=== PATIENT | male | born 1950 | race African-American/Black ===

== ENCOUNTER 2021-02-24 15:56 | Inpatient (IN) | payer BC, MEDICAID ==
[~2021-02-24] VITALS: Ht 180.3 cm; Wt 79.4 kg
[2021-02-24] MEDS ORDERED: FUROSEMIDE 40MG/4ML VIAL IVP ONE (17:00)
[2021-02-24] MEDS ORDERED: PIPERACILLIN/TAZ 3.375G PREMIX 50 ML IV ONE (17:00)
[2021-02-24] MEDS ORDERED: VANCOMYCIN 1 G PREMIX 200 ML IV ONE (17:00)
[2021-02-24 18:25] LABS: BASOPHILS % 1.1 % (0.0-2.0); EOSINOPHILS % 5.2 % (0.0-5.0); HEMOGLOBIN. 9.2 g/dL (14.0-18.0); LYMPHOCYTES % 9.4 % (20.0-50.0); MEAN CORPUSCULAR HEMOGLOBIN 27.9 pg (28.0-32.0); MEAN CORPUSCULAR VOLUME 79.1 fL (80.0-94.0); MEAN PLATELET VOLUME 7.8 fl (7.4-10.4); MONOCYTES % 10.1 % (2.0-8.0); NEUTROPHILS % 74.2 % (40.0-76.0); PLATELET 373 x1000/uL (130-400); RED BLOOD CELL COUNT 3.29 mill/uL (4.7-6.1); RED CELL DISTRIBUTION WIDTH 17.4 % (11.6-14.6)
[2021-02-24 18:30] LABS: CHLORIDE 109 mEq/L (98-107)
[2021-02-24 18:31] LABS: INR 1.1; PROTHROMBIN TIME 11.4 sec (9.6-11.0)
[2021-02-24 19:23] LABS: CLARITY URINE CLEAR (CLEAR); COLOR URINE YELLOW (YELLOW); KETONES URINE NEGATIVE (NEGATIVE); LEUKOCYTE ESTERASE URINE NEGATIVE (NEGATIVE); NITRITE URINE NEGATIVE (NEGATIVE); OCCULT BLOOD URINE NEGATIVE (NEGATIVE); PH URINE 5.5 (4.5-8.0); PROTEIN URINE 3+ (NEGATIVE); SPECIFIC GRAVITY URINE 1.018 (1.005-1.030)
[2021-02-24] MEDS ORDERED: DEXAMETHASONE 10 MG/ML VIAL IV NR (19:45)
[2021-02-24] MEDS ORDERED: DIPH50CA38 PO (23:59)
[2021-02-24] MEDS ORDERED: FLUO10CA28 PO (23:59)
[2021-02-24] MEDS ORDERED: ATOR-2 PO (23:59)
[2021-02-24] MEDS ORDERED: FAMO20TA8 PO (23:59)
[2021-02-24] MEDS ORDERED: SPIR25TA6 PO (23:59)
[2021-02-24] MEDS ORDERED: LEVE500T19 PO (23:59)
[2021-02-24] MEDS ORDERED: ASPI-1497 PO (23:59)
[2021-02-25] VITALS (8 sets, daily range): BP systolic 110–172; BP diastolic 60–100
[2021-02-25] MEDS ORDERED: ACETAMINOPHEN 325MG TABLET PO PRN (02:15)
[2021-02-25] MEDS ORDERED: CLONIDINE 0.1MG TABLET PO PRN (02:15)
[2021-02-25] MEDS: PANTOPRAZOLE 40MG DR TABLET PO SCH (05:21)
[2021-02-25 07:17] LABS: HEMATOCRIT. 30.3 % (42.0-52.0); MEAN CORPUSCULAR HEMOGLOBIN 26.1 pg (28.0-32.0); MEAN CORPUSCULAR VOLUME 78.9 fL (80.0-94.0); MEAN PLATELET VOLUME 7.8 fl (7.4-10.4); PLATELET 395 x1000/uL (130-400); RED BLOOD CELL COUNT 3.83 mill/uL (4.7-6.1); RED CELL DISTRIBUTION WIDTH 17.9 % (11.6-14.6)
[2021-02-25 07:19] LABS: CHLORIDE 104 mEq/L (98-107)
[2021-02-25 07:26] LABS: LDL CHOLESTEROL 105 mg/dL (5-100)
[2021-02-25 07:27] LABS: HDL CHOLESTEROL 37 mg/dL (40-59)
[2021-02-25 07:31] LABS: CREATINE KINASE 101 IU/L (39-308)
[2021-02-25 07:33] LABS: CREATINE KINASE MB FRACTION 1.5 ng/mL (0.5-3.6)
[2021-02-25] MEDS: FLUOXETINE HCL 10 MG CAPSULE PO SCH (09:05)
[2021-02-25] MEDS: LOSARTAN POTASSIUM 50 MG TABLET PO SCH (09:05)
[2021-02-25] MEDS: LEVETIRACETAM 500MG TABLET PO SCH ×2 (09:06→21:05)
[2021-02-25] MEDS: ASPIRIN 81MG TABLET PO SCH (09:06)
[2021-02-25] MEDS: CARVEDILOL 6.25 MG TABLET PO SCH ×2 (09:06→21:05)
[2021-02-25] MEDS: FAMOTIDINE 20MG TABLET PO SCH (09:06)
[2021-02-25] MEDS: FUROSEMIDE 40MG/4ML VIAL IVP SCH (09:07)
[2021-02-25] MEDS: SPIRONOLACTONE 25MG TABLET PO SCH (09:07)
[2021-02-25] MEDS: ENOXAPARIN 40MG/0.4ML SYR SUBCUT SCH (09:08)
[2021-02-25 13:01] LABS: BG BASE EXCESS 1.8 mmol/L (-2.0-2.0); BG CARBOXYHEMOGLOBIN 0.2 % (0.5-1.5); BG DEOXYHEMOGLOBIN 2.2 % (0.0-5.0); BG FRACTION INSPIRED OXYGEN 28; BG HCO3 ACT 25.9 mmol/L (22.0-26.0); BG METHEMOGLOBIN 0.4 % (0.0-1.5); BG OXYGEN SATURATION 97.8 % (92.0-98.5); BG OXYHEMOGLOBIN 97.2 % (94.0-97.0); BG PCO2 38.7 mmHg (35.0-45.0); BG PH 7.444 (7.350-7.450); BG PO2 122.2 mmHg (75.0-100.0); BG SAMPLE SITE RIGHT RADIAL; BG TOTAL HEMOGLOBIN 10.8 g/dL (12.0-18.0); BG VENT MODE NASAL CANNULA
[2021-02-25] MEDS ORDERED: DIPHENHYDRAMINE 50MG/ML VIAL IV PRN (14:00)
[2021-02-25] MEDS ORDERED: LACTULOSE 20G/30ML UDC PO PRN (14:00)
[2021-02-25] MEDS ORDERED: LORAZEPAM 2MG/ML CPJ IV PRN (14:00)
[2021-02-25] MEDS: PIPERACILLIN/TAZOBACTAM 3.375 G in DEXTROSE 5% WATER 50 ML IV SCH ×2 (15:22→21:05)
[2021-02-25 16:44] LABS: CREATINE KINASE MB FRACTION 1.6 ng/mL (0.5-3.6)
[2021-02-25 16:45] LABS: CREATINE KINASE 189 IU/L (39-308)
[2021-02-25] MEDS: ALBUTEROL 6.7GM HFA INHALER ORI SCH (20:00)
[2021-02-25] MEDS: ATORVASTATIN CALCIUM 40MG TABLET PO SCH (21:05)
[2021-02-25 23:02] LABS: PLATELET ESTIMATE NORMAL
[2021-02-26] MEDS: ALBUTEROL 6.7GM HFA INHALER ORI SCH ×4 (01:01→22:13)
[2021-02-26 04:00] VITALS: BP 139/66
[2021-02-26] MEDS: HYDROCODONE/ACETAMINOPHEN 5/325MG TABLET PO PRN ×2 (05:28→09:55)
[2021-02-26] MEDS: PIPERACILLIN/TAZOBACTAM 3.375 G in DEXTROSE 5% WATER 50 ML IV SCH ×3 (05:28→22:00)
[2021-02-26 06:09] LABS: CHLORIDE 107 mEq/L (98-107)
[2021-02-26 06:09] LABS: BASOPHILS % 0.6 % (0.0-2.0); EOSINOPHILS % 3.9 % (0.0-5.0); HEMATOCRIT. 30.4 % (42.0-52.0); HEMOGLOBIN. 10.1 g/dL (14.0-18.0); LYMPHOCYTES % 9.8 % (20.0-50.0); MEAN CORPUSCULAR HEMOGLOBIN 26.8 pg (28.0-32.0); MEAN CORPUSCULAR VOLUME 80.7 fL (80.0-94.0); MEAN PLATELET VOLUME 7.8 fl (7.4-10.4); MONOCYTES % 8.8 % (2.0-8.0); NEUTROPHILS % 76.9 % (40.0-76.0); PLATELET 366 x1000/uL (130-400); RED BLOOD CELL COUNT 3.77 mill/uL (4.7-6.1); RED CELL DISTRIBUTION WIDTH 17.9 % (11.6-14.6)
[2021-02-26 06:25] VITALS: BP 143/83
[2021-02-26] MEDS: PANTOPRAZOLE 40MG DR TABLET PO SCH (06:44)
[2021-02-26] MEDS: FUROSEMIDE 40MG/4ML VIAL IVP SCH (09:40)
[2021-02-26] MEDS: DEXAMETHASONE 10 MG/ML VIAL IV SCH (09:40)
[2021-02-26] MEDS: SPIRONOLACTONE 25MG TABLET PO SCH (09:50)
[2021-02-26] MEDS: ASPIRIN 81MG TABLET PO SCH (09:50)
[2021-02-26] MEDS: LOSARTAN POTASSIUM 50 MG TABLET PO SCH (09:51)
[2021-02-26] MEDS: CARVEDILOL 6.25 MG TABLET PO SCH ×2 (09:51→22:08)
[2021-02-26] MEDS: LEVETIRACETAM 500MG TABLET PO SCH ×2 (09:51→22:07)
[2021-02-26] MEDS: FLUOXETINE HCL 10 MG CAPSULE PO SCH (09:52)
[2021-02-26] MEDS: FAMOTIDINE 20MG TABLET PO SCH (09:52)
[2021-02-26] MEDS: ENOXAPARIN 40MG/0.4ML SYR SUBCUT SCH (09:53)
[2021-02-26 12:22] VITALS: BP 108/66
[2021-02-26 12:26] VITALS: BP 108/66
[2021-02-26] MEDS ORDERED: FUROSEMIDE 40MG/4ML VIAL IVP SCH (13:00)
[2021-02-26] MEDS ORDERED: VANCOMYCIN 750 MG PREMIX 150 ML IV SCH (16:00)
[2021-02-26 16:08] VITALS: BP 120/75
[2021-02-26 20:00] VITALS: BP 147/86
[2021-02-26] MEDS: TRIAMCINOLONE ACETONIDE 0.025% CREAM 15GM TOP SCH ×2 (21:00→22:12)
[2021-02-26] MEDS ORDERED: NALOXONE HCL 0.4MG/ML VIAL IV PRN (21:00)
[2021-02-26] MEDS: ATORVASTATIN CALCIUM 40MG TABLET PO SCH (22:07)
[2021-02-27] VITALS: BP 138/79
[2021-02-27] MEDS: ALBUTEROL 6.7GM HFA INHALER ORI SCH (02:00)
[2021-02-27 04:00] VITALS: BP 133/77
[2021-02-27 05:44] LABS: BASOPHILS % 0.2 % (0.0-2.0); EOSINOPHILS % 0.2 % (0.0-5.0); HEMATOCRIT. 28.8 % (42.0-52.0); HEMOGLOBIN. 9.9 g/dL (14.0-18.0); LYMPHOCYTES % 13.1 % (20.0-50.0); MEAN CORPUSCULAR HEMOGLOBIN 26.9 pg (28.0-32.0); MEAN CORPUSCULAR VOLUME 77.9 fL (80.0-94.0); MONOCYTES % 5.4 % (2.0-8.0); NEUTROPHILS % 81.1 % (40.0-76.0); PLATELET 410 x1000/uL (130-400); RED CELL DISTRIBUTION WIDTH 18.1 % (11.6-14.6)
[2021-02-27 06:00] LABS: CHLORIDE 101 mEq/L (98-107)
[2021-02-27 08:00] VITALS: BP 150/86
[2021-02-27] MEDS: LEVETIRACETAM 500MG TABLET PO SCH ×2 (09:17→23:09)
[2021-02-27] MEDS: FAMOTIDINE 20MG TABLET PO SCH ×2 (09:17→23:11)
[2021-02-27] MEDS: ASPIRIN 81MG TABLET PO SCH (09:17)
[2021-02-27] MEDS: LOSARTAN POTASSIUM 50 MG TABLET PO SCH (09:17)
[2021-02-27] MEDS: FLUOXETINE HCL 10 MG CAPSULE PO SCH (09:17)
[2021-02-27] MEDS: CARVEDILOL 6.25 MG TABLET PO SCH ×2 (09:18→23:11)
[2021-02-27] MEDS: ENOXAPARIN 40MG/0.4ML SYR SUBCUT SCH (09:20)
[2021-02-27] MEDS: SPIRONOLACTONE 25MG TABLET PO SCH (09:20)
[2021-02-27 12:00] VITALS: BP 124/41
[2021-02-27] MEDS ORDERED: VANCOMYCIN 1500MG in DEXTROSE 5% WATER 250ML IV SCH (12:00)
[2021-02-27] MEDS ORDERED: LIDOCAINE HCL 1% 20ML VIAL (Pyxis) INJ ONE (12:27)
[2021-02-27 16:00] VITALS: BP 110/65
[2021-02-27] MEDS: FUROSEMIDE 40MG/4ML VIAL IVP SCH (17:00)
[2021-02-27] MEDS: DEXAMETHASONE 10 MG/ML VIAL IV SCH (17:07)
[2021-02-27] MEDS: TRIAMCINOLONE ACETONIDE 0.025% CREAM 15GM TOP SCH ×2 (17:13→23:19)
[2021-02-27] MEDS: PIPERACILLIN/TAZOBACTAM 3.375 G in DEXTROSE 5% WATER 50 ML IV SCH ×2 (19:39→23:08)
[2021-02-27 20:00] VITALS: BP 124/72
[2021-02-27] MEDS: ATORVASTATIN CALCIUM 40MG TABLET PO SCH (23:09)
[2021-02-28] VITALS: BP 127/71
[2021-02-28] MEDS ORDERED: VANCOMYCIN 1250MG in DEXTROSE 5% WATER 250ML IV SCH (06:00)
[2021-02-28] MEDS: PIPERACILLIN/TAZOBACTAM 3.375 G in DEXTROSE 5% WATER 50 ML IV SCH ×3 (06:35→22:04)
[2021-02-28 06:51] LABS: BASOPHILS % 0.2 % (0.0-2.0); HEMATOCRIT. 27.6 % (42.0-52.0); HEMOGLOBIN. 9.4 g/dL (14.0-18.0); LYMPHOCYTES % 9.3 % (20.0-50.0); MEAN CORPUSCULAR HEMOGLOBIN 27.2 pg (28.0-32.0); MEAN CORPUSCULAR VOLUME 79.7 fL (80.0-94.0); MEAN PLATELET VOLUME 8.2 fl (7.4-10.4); MONOCYTES % 3.3 % (2.0-8.0); NEUTROPHILS % 87.2 % (40.0-76.0); PLATELET 385 x1000/uL (130-400); RED BLOOD CELL COUNT 3.46 mill/uL (4.7-6.1); RED CELL DISTRIBUTION WIDTH 17.7 % (11.6-14.6)
[2021-02-28 07:38] LABS: CHLORIDE 103 mEq/L (98-107)
[2021-02-28 08:00] VITALS: BP 145/96
[2021-02-28] MEDS: ASPIRIN 81MG TABLET PO SCH (09:24)
[2021-02-28] MEDS: SPIRONOLACTONE 25MG TABLET PO SCH (09:25)
[2021-02-28] MEDS: LEVETIRACETAM 500MG TABLET PO SCH ×2 (09:25→22:03)
[2021-02-28] MEDS: CARVEDILOL 6.25 MG TABLET PO SCH ×2 (09:25→21:00)
[2021-02-28] MEDS: LOSARTAN POTASSIUM 50 MG TABLET PO SCH (09:25)
[2021-02-28] MEDS: FLUOXETINE HCL 10 MG CAPSULE PO SCH (09:25)
[2021-02-28] MEDS: ENOXAPARIN 40MG/0.4ML SYR SUBCUT SCH (09:26)
[2021-02-28] MEDS: DEXAMETHASONE 10 MG/ML VIAL IV SCH (09:26)
[2021-02-28] MEDS: FUROSEMIDE 40MG/4ML VIAL IVP SCH (09:26)
[2021-02-28] MEDS: TRIAMCINOLONE ACETONIDE 0.025% CREAM 15GM TOP SCH ×2 (09:28→22:04)
[2021-02-28] MEDS: FAMOTIDINE 20MG TABLET PO SCH ×2 (09:28→22:03)
[2021-02-28] MEDS: ALBUTEROL 6.7GM HFA INHALER ORI SCH ×3 (09:29→22:04)
[2021-02-28 12:00] VITALS: BP 143/90
[2021-02-28] MEDS ORDERED: FURO-151 MT (14:35)
[2021-02-28] MEDS ORDERED: ATOR-2 PO (14:35)
[2021-02-28] MEDS ORDERED: LOSA25TA3 MT (14:35)
[2021-02-28] MEDS ORDERED: LEVE500T19 PO (14:35)
[2021-02-28] MEDS ORDERED: COR3 MT (14:35)
[2021-02-28] MEDS ORDERED: ASPI-1497 PO (14:35)
[2021-02-28] MEDS ORDERED: AMOX1TAB15 MT (14:42)
[2021-02-28 15:37] LABS: BG BASE EXCESS 2.2 mmol/L (-2.0-2.0); BG CARBOXYHEMOGLOBIN 0.3 % (0.5-1.5); BG DEOXYHEMOGLOBIN 9.4 % (0.0-5.0); BG FRACTION INSPIRED OXYGEN 21; BG METHEMOGLOBIN 0.3 % (0.0-1.5); BG OXYGEN SATURATION 90.5 % (92.0-98.5); BG PCO2 42.9 mmHg (35.0-45.0); BG PH 7.417 (7.350-7.450); BG PO2 63.6 mmHg (75.0-100.0); BG SAMPLE SITE LEFT RADIAL; BG VENT MODE ROOM AIR
[2021-02-28] MEDS: HYDROCODONE/ACETAMINOPHEN 5/325MG TABLET PO PRN (15:52)
[2021-02-28 16:00] VITALS: BP 128/70
[2021-02-28 20:00] VITALS: BP 120/69
[2021-02-28] MEDS: ATORVASTATIN CALCIUM 40MG TABLET PO SCH (22:03)
[2021-03-01] VITALS (8 sets, daily range): BP systolic 107–144; BP diastolic 55–81
[2021-03-01] MEDS: ALBUTEROL 6.7GM HFA INHALER ORI SCH ×3 (03:05→17:45)
[2021-03-01] MEDS: PIPERACILLIN/TAZOBACTAM 3.375 G in DEXTROSE 5% WATER 50 ML IV SCH (06:00)
[2021-03-01 07:18] LABS: BASOPHILS % 0.5 % (0.0-2.0); EOSINOPHILS % 0.3 % (0.0-5.0); HEMOGLOBIN. 9.6 g/dL (14.0-18.0); LYMPHOCYTES % 10.7 % (20.0-50.0); MEAN CORPUSCULAR HEMOGLOBIN 26.6 pg (28.0-32.0); MEAN CORPUSCULAR VOLUME 77.9 fL (80.0-94.0); MONOCYTES % 8.3 % (2.0-8.0); NEUTROPHILS % 80.2 % (40.0-76.0); PLATELET 418 x1000/uL (130-400); RED CELL DISTRIBUTION WIDTH 18.1 % (11.6-14.6)
[2021-03-01 07:34] LABS: CHLORIDE 104 mEq/L (98-107)
[2021-03-01] MEDS: FUROSEMIDE 40MG/4ML VIAL IVP SCH (09:00)
[2021-03-01] MEDS: FLUOXETINE HCL 10 MG CAPSULE PO SCH (09:14)
[2021-03-01] MEDS: TRIAMCINOLONE ACETONIDE 0.025% CREAM 15GM TOP SCH ×2 (09:14→20:35)
[2021-03-01] MEDS: HYDROCODONE/ACETAMINOPHEN 5/325MG TABLET PO PRN ×2 (09:15→20:36)
[2021-03-01] MEDS: LEVETIRACETAM 500MG TABLET PO SCH ×2 (09:16→20:35)
[2021-03-01] MEDS: SPIRONOLACTONE 25MG TABLET PO SCH (09:16)
[2021-03-01] MEDS: ASPIRIN 81MG TABLET PO SCH (09:16)
[2021-03-01] MEDS: CARVEDILOL 6.25 MG TABLET PO SCH ×2 (09:16→20:29)
[2021-03-01] MEDS: LOSARTAN POTASSIUM 50 MG TABLET PO SCH (09:16)
[2021-03-01] MEDS: FAMOTIDINE 20MG TABLET PO SCH ×2 (09:16→20:35)
[2021-03-01] MEDS: ENOXAPARIN 40MG/0.4ML SYR SUBCUT SCH (09:17)
[2021-03-01] MEDS ORDERED: AMOXICILLIN/POTASSIUM CLAVULANATE 500/125MG TAB PO SCH ×2 (12:45→21:00)
[2021-03-01] MEDS ORDERED: TC025U80 TP (13:44)
[2021-03-01] MEDS: ATORVASTATIN CALCIUM 40MG TABLET PO SCH (20:35)
== END 2021-03-01 23:30 | disposition home health service (06) | DRG 291 ==
LOC: ER 15:56 → 8WST 22:13 → EDBEDREQ 22:15 → EDBEDREQTM 22:15 → ENRESERV 22:40 → 8WST 23:30 → 7WST 02-25 11:43 → 6WST 02-26 06:08
PROVIDERS: ADMIT Internal Medicine; ATTEND Internal Medicine
PROC: 02HV33Z Insertion of Infusion Device into Superior Vena Cava, Percutaneous Approach (ICD-10-PCS; principal; 2021-02-27)
PROC: B518ZZA Fluoroscopy of Superior Vena Cava, Guidance (ICD-10-PCS; 2021-02-27)
PROC: B548ZZA Ultrasonography of Superior Vena Cava, Guidance (ICD-10-PCS; 2021-02-27)
DX: I11.0 Hypertensive heart disease with heart failure (principal); J18.9 Pneumonia, unspecified organism; R09.02 Hypoxemia; D64.9 Anemia, unspecified; E78.5 Hyperlipidemia, unspecified; G40.909 Epilepsy, unspecified, not intractable, without status epilepticus; R80.9 Proteinuria, unspecified; Z20.822 Contact with and (suspected) exposure to COVID-19; R06.03 Acute respiratory distress; I50.43 Acute on chronic combined systolic (congestive) and diastolic (congestive) heart failure; Z79.899 Other long term (current) drug therapy; Z79.82 Long term (current) use of aspirin; D72.825 Bandemia
CPT/HCPCS: 36415; 36573; 36600; 71045; 80048; 80053; 80061; 81003; 82375; 82550; 82553; 82805; 83605; 83880; 84145; 84436; 84443; 84484; 85025; 87426; 93005; 93306; 93970; 94618; 97116; 97161; 97530; 99285; C1725; C1892; J1100; J1650; J1940; J2543; J3370; J3490; J7060; U0003; U0005